=== PATIENT | male | born 1970 | race Two or more races ===

== ENCOUNTER 2025-07-25 06:29 | Emergency (ER) | payer MEDICAID, SELFPAY ==
[2025-07-25 06:30] VITALS: BMI 35.5
[2025-07-25 06:41] VITALS: BP 130/89; PULSE 77; RESP 18; TEMP 36.8; O2SAT 95
--- NOTE | 2025-07-25 06:50 | EDNOTE_ITS ---
ED Extremity Problem RME/HPI General Chief complaint: Extremity Problem,Nontraumatic Stated complaint: LEFT KNEE PAIN Time Seen by Provider: 07/25/25 06:31 Source: patient Arrival date/time: 07/25/25 06:29 54-year-old male with a history of gout presents to the emergency room with a chief complaint of left knee pain x 1 day Mode of arrival: ambulatory Limitations: no limitations Related Data Allergies Allergy/AdvReac Type Severity Reaction Status Date / Time indomethacin Allergy Verified 07/25/25 06:32 Review of Systems Review of Systems Systems Reviewed: All systems reviewed, normal except as documented Constitutional Constitutional: Reports system reviewed and no additional complaints, except as documented, Denies fatigue, Denies fever(s), Denies headache(s) and Denies weakness Eyes Eyes: Reports system reviewed and no additional complaints, except as documented, Denies blurry vision and Denies change in vision ENT Ears, Nose, Mouth, and Throat: Reports system reviewed and no additional complaints, except as documented, Denies otalgia, Denies headache(s), Denies nasal congestion, Denies throat swelling and Denies vertigo Cardiovascular Cardiovascular: Reports system reviewed and no additional complaints, except as documented, Denies chest pain, Denies dyspnea and Denies dyspnea on exertion Respiratory Respiratory: Reports system reviewed and no additional complaints, except as documented, Denies chest congestion, Denies cough, Denies dyspnea, Denies dyspnea on exertion and Denies wheezing Gastrointestinal Gastrointestinal: Reports system reviewed and no additional complaints, except as documented, Denies abdominal pain, Denies cramping, Denies nausea and Denies vomiting Genitourinary Genitourinary: Reports system reviewed and no additional complaints, except as documented, Denies dysuria and Denies hematuria Musculoskeletal Musculoskeletal: Reports system reviewed and no additional complaints, except as documented, Reports abnormal gait, Reports arthralgias, Denies back pain, Reports joint swelling and Reports limited range of motion Integumentary/Breasts Skin/Breast: Reports system reviewed and no additional complaints, except as documented and Denies wounds Neurologic Neurologic: Reports system reviewed and no additional complaints, except as documented, Reports abnormal gait, Denies confusion, Denies headache(s), Denies lack of coordination, Denies vertigo and Denies weakness Psychiatric Psychiatric: Reports system reviewed and no additional complaints, except as documented, Denies anxiety, Denies confusion, Denies depression, Denies paranoia, Denies suicidal ideation and Denies tactile hallucinations Endocrine Endocrine: Reports system reviewed and no additional complaints, except as documented and Denies fatigue Hematologic/Lymphatic Hematologic/Lymphatic: Reports system reviewed and no additional complaints, except as documented and Denies lymphadenopathy Allergic/Immunologic Allergic/Immunologic: Reports system reviewed and no additional complaints, except as documented, Denies throat swelling, Denies urticaria and Denies wheezing ED Exam General Limitations: Present no limitations General appearance: Present alert and in no apparent distress Head Head exam: Present atraumatic Eye Eye exam: Present normal appearance, PERRL and EOMI ENT ENT exam: Present normal exam, normal oropharynx and mucous membranes moist Neck Neck exam: Present normal inspection, full ROM and trachea midline Chest Chest inspection: Present normal inspection and symmetric chest wall rise Respiratory Respiratory exam: Present normal lung sounds bilaterally Cardiovascular Cardiovascular exam: Present regular rate, normal rhythm and normal heart sounds Abdominal Exam Abdominal exam: Present soft and normal bowel sounds Extremities Exam Extremities exam: Present normal inspection and full ROM Expanded Lower Extremity Exam Hip/Pelvis exam: Present normal inspection Upper leg exam: Present normal inspection Knee exam: Present normal inspection, full ROM, tenderness and effusion; Absent swelling or erythema Back Exam Back exam: Present normal inspection and full ROM Neurological Exam Neurological exam: Present alert, oriented X3 and CN II-XII intact Psychiatric Psychiatric exam: Present normal affect and normal mood Skin Skin exam: Present warm, dry, intact and normal color Course Quality Measures none Orders Category Date Time Status Colchicine Med 07/25/25 06:48 Discontinued 1.2 mg PO X1 ONE Ketorolac Inj [Toradol Inj] Med 07/25/25 06:43 Discontinued 30 mg IM X1 ONE Vital Signs Vital signs: Vital Signs Temperature 98.3 F 07/25/25 06:41 Pulse Rate 77 07/25/25 06:41 Respiratory Rate 18 07/25/25 06:41 Blood Pressure 130/89 H 07/25/25 06:41 Pulse Oximetry (%) 95 07/25/25 06:41 Oxygen Delivery Method Room Air 07/25/25 06:41 Extremity Problem MDM Narrative MDM Narrative:: 54-year-old male with a history of gout presents to the emergency room with a chief complaint of left knee pain x 1 day Patient is hemodynamically stable and in no apparent distress. Patient is afebrile nontachycardic nontachypneic Physical examination shows tenderness to the patient's left knee with mild effusion. Patient has full range of motion and is able to ambulate. The site is not erythemic and not warm to the touch but the patient states he is having a lot of pain. There was no trauma Patient was discharged and educated to follow-up with primary care provider in the next 24 to 48 hours and return to the emergency room for any evidence of worsening signs or symptoms Patient data External records reviewed:: [facility] previous records Clinical information provided by:: patient Social determinants that could affect healthcare access:: none Patient has the following chronic illnesses:: Gout How is presenting disease/condition affected by chronic disease/condition?: exacerbated by Evaluation data The following diagnostics were reviewed and interpreted by me:: lab results and radiology exam(s) Lab and/or radiology exams considered but not ordered:: Labs radiology exams considered and ordered Interpretation Summary: N/A Medications / Prescriptions Medications or Prescriptions considered but not ordered:: Medication given Medication administrations:: Medication Administration History Discontinued Medications Colchicine (Colchicine 0.6 Mg Tablet) 1.2 mg PO X1 ONE Stop: 07/25/25 06:49 Last Admin: 07/25/25 07:34 Dose: 1.2 mg Documented By: ARF Ketorolac Tromethamine (Ketorolac Inj 60 Mg/2 Ml Vial) 30 mg IM X1 ONE Stop: 07/25/25 06:44 Last Admin: 07/25/25 07:31 Dose: 30 mg Documented By: ARF Medication given Consultations Consultation(s) initiated? (list below): No Diagnosis Extremity Problem Differential Diagnosis: gout and other (Arthritis) Most likely diagnosis given after review of the tests above:: Gout Admission Indicated Admission indicated?: not indicated Admission Request Was there a request for admission?: No Disposition Plan Disposition Plan: Discharge Discharge Attestation Discharge Attestation: The patient and all family members were given an opportunity to ask questions and understood the discharge instructions. Discharge instructions specifically effects, indications for sooner follow up or return to the emergency department, and the expected course of current diagnosis. Patient condition: Stable Discharge Plan Plan Patient Disposition: HOME (Self Care) Discharge Disposition comment: Stable Problem List Clinical Impression: Gout Patient/Caregiver Discharge Instructions Education Materials: ED Gout, ED Gout Diet Additional Instructions: Please follow-up with your primary care provider in the next 24 to 48 hours Medication was given to you to help you with your symptoms For any evidence of worsening signs or symptoms return to the emergency room immediately Print Language: Maltese Stand Alone Forms: Tammy Award Info., Work/School Release, Patient Portal Info Letter PA/SPECIAL PROCEDURES NURSE Supervising Physician PA/SPECIAL PROCEDURES NURSE Supervising Physician: Dr. Obrien
[2025-07-25] MEDS: KETOROLAC INJ 60 MG/2 ML VIAL 30 MG IM (07:31)
[2025-07-25] MEDS: COLCHICINE 0.6 MG TABLET 1.2 MG PO (07:34)
== END 2025-07-25 09:31 | disposition home or self-care (01) ==
LOC: SERX 08:24
PROVIDERS: Emergency Provider Family Medicine; PCP Internal Medicine
DX: M10.9 Gout, unspecified (principal)
CPT/HCPCS: 96372; 99282; J1885; A9270